=== PATIENT | female | born 1945 | race Caucasian/White ===

== ENCOUNTER 2021-12-04 11:14 | Outpatient (CLI) | payer MEDICARE | END 2021-12-04 11:15 | disposition home or self-care (01) | LOC: CSHLAB 11:14 | PROVIDERS: ATTEND Obstetrics & Gynecology | DX: Z01.818 Encounter for other preprocedural examination (principal); Z20.822 Contact with and (suspected) exposure to COVID-19; N39.3 Stress incontinence (female) (male) | CPT/HCPCS: 80048; 85027; 86850; 86870; 86900; 86901; 93005; 93010; U0003; U0005 ==

== ENCOUNTER 2021-12-07 08:40 | Day surgery (SDC) | payer MEDICARE ==
[2021-11-28 12:39] VITALS: BMI 29.2
[2021-12-04 12:43] LABS: Hemoglobin 13.8 g/dL (12.0-15.5); Mean Corpuscular HGB CONC 33.6 g/dL (32.0-36.0); Mean Corpuscular Hemoglobin 28.7 pg (27.0-33.0); Mean Corpuscular Volume 85.4 fl (81.6-98.3); Mean Platelet Volume 10.4 fl (7.4-10.4); Platelet Count 207 10x3/uL (150-450); RBC Distribution Width 12.7 % (11.5-14.5); Red Blood Cell (RBC) Count 4.81 10x6/uL (3.90-5.03); White Blood Cell (WBC) Count 5.3 10x3/uL (3.5-10.5)
[2021-12-04 13:01] LABS: Anion Gap 15 mmol/L (10-20); BUN (Urea Nitrogen) 20 mg/dL (9.8-20.1); Calc. Creatinine Clearance 0 mL/min (70-130); Calcium 9.3 mg/dL (7.8-10.44); Carbon Dioxide 27 mmol/L (23-31); Chloride 105 mmol/L (98-107); Glucose 103 mg/dL (83-110); Potassium 4.4 mmol/L (3.5-5.1); Sodium 143 mmol/L (136-145)
[2021-12-04 20:47] LABS: SARS-CoV-2 PCR by NAA Not Detected (NotDetected)
[2021-12-07] MEDS ORDERED: Gabapentin 300 MG CAP ONE (09:06)
[2021-12-07] MEDS ORDERED: Famotidine/PF 20 mg/2ml Vial ONE (09:06)
[2021-12-07] MEDS ORDERED: Lidocaine 1% MPF 2 ML VIAL ONE (09:06)
[2021-12-07] MEDS ORDERED: CeleCOXIB 100 MG CAP ONE (09:23)
[2021-12-07] MEDS ORDERED: Lidocaine 1% w/Epinephrine 1:100K 20 ML VIAL ONE (10:12)
[2021-12-07] MEDS ORDERED: PROPOFOL 20 ML ONE (10:34)
[2021-12-07] MEDS ORDERED: Fentanyl 100 MCG/2 ML VIAL ONE ×2 (10:34→12:43)
[2021-12-07] MEDS ORDERED: Dexamethasone 4 mg/ml Vial ONE (10:35)
[2021-12-07] MEDS ORDERED: Ondansetron PF 4 MG/2 ML Vial ONE (10:35)
[2021-12-07] MEDS ORDERED: Lidocaine 1% PF 5 ML VIAL ONE (10:35)
[2021-12-07] MEDS ORDERED: ceFAZolin 2 GM/Dextrose 50 ML IVPB ONE (10:45)
[2021-12-07] MEDS ORDERED: Midazolam HCl 2 mg/2 ml Vial ONE (10:45)
[2021-12-07] MEDS ORDERED: Ondansetron PF 4 MG/2 ML Vial IVP PRN (12:10)
[2021-12-07] MEDS ORDERED: traMADol HCl 50 MG TAB PO PRN ×2 (12:10)
[2021-12-07] MEDS ORDERED: diphenhydrAMINE 25 MG CAP PO PRN (12:10)
[2021-12-07] MEDS ORDERED: Simethicone Chewable 80 MG TAB PO PRN (12:10)
[2021-12-07] MEDS ORDERED: Bisacodyl 10 MG SUPP PR PRN (12:10)
[2021-12-07] MEDS ORDERED: Acetaminophen 325 MG TAB PO PRN (12:10)
[2021-12-07] MEDS ORDERED: ALPRAZolam 0.5 MG TAB PO PRN (12:15)
[2021-12-07] MEDS: Fentanyl 100 MCG/2 ML VIAL SLOW IVP PRN ×3 (15:56→22:26)
[2021-12-07] MEDS: Docusate 100 MG CAP PO SCH (22:21)
[2021-12-08 04:27] LABS: Hemoglobin 11.7 g/dL (12.0-15.5); Mean Corpuscular HGB CONC 34.8 g/dL (32.0-36.0); Mean Corpuscular Hemoglobin 29.1 pg (27.0-33.0); Mean Corpuscular Volume 83.6 fl (81.6-98.3); Mean Platelet Volume 10.1 fl (7.4-10.4); Platelet Count 169 10x3/uL (150-450); RBC Distribution Width 12.9 % (11.5-14.5); Red Blood Cell (RBC) Count 4.02 10x6/uL (3.90-5.03); White Blood Cell (WBC) Count 8.7 10x3/uL (3.5-10.5)
[2021-12-08] MEDS ORDERED: Levothyroxine Sodium 88 MCG TAB PO SCH (06:00)
[2021-12-08] MEDS: Cholecalciferol 1,000 UNITS (25 MCG) TAB PO SCH ×2 (06:44→08:37)
[2021-12-08 07:49] VITALS: BP 141/71; TEMP 97.9
[2021-12-08] MEDS: Aspirin 81 mg Enteric Coated Tablet PO SCH ×2 (08:36→10:34)
[2021-12-08] MEDS: Docusate 100 MG CAP PO SCH (08:36)
[2021-12-08] MEDS: Hydrochlorothiazide 25 MG TAB PO SCH ×2 (08:37→08:40)
[2021-12-08] MEDS ORDERED: CeleCOXIB 100 MG CAP PO SCH (09:00)
== END 2021-12-08 11:01 | disposition home or self-care (01) ==
LOC: CSHSDC 08:40 → CSHPP 14:45 → UNDOADMIN 14:45 → CSHSDC 12-08 11:01 → UNDODISIN 12-08 11:01
PROVIDERS: ATTEND Obstetrics & Gynecology
PROC: 0JQC0ZZ Repair Pelvic Region Subcutaneous Tissue and Fascia, Open Approach (ICD-10-PCS; principal; 2021-12-07)
DX: N81.6 Rectocele (principal); N39.3 Stress incontinence (female) (male); Z90.710 Acquired absence of both cervix and uterus; Z79.899 Other long term (current) drug therapy; E78.5 Hyperlipidemia, unspecified; E03.9 Hypothyroidism, unspecified; F41.9 Anxiety disorder, unspecified; M81.0 Age-related osteoporosis without current pathological fracture; I12.9 Hypertensive chronic kidney disease with stage 1 through stage 4 chronic kidney disease, or unspecified chronic kidney disease; N18.30 Chronic kidney disease, stage 3 unspecified; Z20.822 Contact with and (suspected) exposure to COVID-19; Z01.818 Encounter for other preprocedural examination
CPT/HCPCS: 57250; 57288; 80048; 85027 ×2; 86850; 86870; 86900; 86901; 86902; 86920; 86922; 93005; C1781; U0003; U0005; 36415; J0690; J1100; J2250; J2405; J2704; J3010; S0028